=== PATIENT | female | born 1990 | race Caucasian/White ===

== ENCOUNTER → 2020-02-23 | Outpatient (CLI) | payer SELFPAY | LOC: OD 12:14 | PROVIDERS: ATTEND Nurse Practitioner Primary Care | DX: Z34.01 Encounter for supervision of normal first pregnancy, first trimester (principal) | CPT/HCPCS: 36415; 82670; 84144; 84702 ==

== ENCOUNTER → 2020-03-07 | Outpatient (CLI) | payer SELFPAY | LOC: OD 12:53 | PROVIDERS: ATTEND Nurse Practitioner Primary Care | DX: Z34.01 Encounter for supervision of normal first pregnancy, first trimester (principal) | CPT/HCPCS: 36415; 82670; 84144 ==